=== PATIENT | male | born 1990 | race Caucasian/White ===

== ENCOUNTER 2017-11-21 23:22 | Emergency (ER) | payer SELFPAY ==
--- NOTE | 2017-11-22 00:03 | ED ---
Altered Mental Status - HPI Summary HPI Summary: Patient found in Commons unresponsive and, covered in vomit. Patient somnolent , but when aroused responds appropriately and is oriented. When roused admits to 6 glasses of wine consumption at wedding, and then more at at bar afterwards. Unsure how much more at bar. Denies any pain or injury. Denies medical history. - History Of Current Complaint Chief Complaint: EDSubstanceAbuse Stated Complaint: 2208 Time Seen by Provider: 11/21/17 23:45 Hx Obtained From: Patient Onset/Duration: Unknown PMH/Surg Hx/FS Hx/Imm Hx Endocrine/Hematology History: Denies: Hx Anticoagulant Therapy Cardiovascular History: Denies: Hx Congenital Heart Disease Respiratory History: Denies: Hx Pulmonary Edema History: Denies: Hx Dialysis Neurological History: Denies: Hx CVA Infectious Disease History: No Infectious Disease History: Denies: Traveled Outside the [place] in Last 30 Days - Social History Alcohol Use: Occasionally Substance Use Type: Reports: None Hx Tobacco Use: No Smoking Status (MU): Current Some Day Smoker Review of Systems Constitutional: Negative Eyes: Negative ENT: Negative Cardiovascular: Negative Respiratory: Negative Gastrointestinal: Negative Genitourinary: Negative Musculoskeletal: Negative Skin: Negative Neurological: Negative Psychological: Normal All Other Systems Reviewed And Are Negative: Yes Physical Exam - Summary Physical Exam Summary: Patient not vomiting here in the ED. Alert and oriented when aroused. Speech is coherent and appropriate. No indication of trauma or injury. Patient moves up bilateral upper and lower extremities freely. Triage Information Reviewed: Yes Vital Signs On Initial Exam: Initial Vitals Temp Pulse Resp BP Pulse Ox 98.1 F 101 20 142/78 98 11/21/17 23:28 11/21/17 23:28 11/21/17 23:28 11/21/17 23:28 11/21/17 23:28 Vital Signs Reviewed: Yes Appearance: Positive: Well-Appearing Skin: Positive: Warm Head/Face: Positive: Normal Head/Face Inspection Eyes: Positive: Normal Neck: Positive: Supple Respiratory/Lung Sounds: Positive: Clear to Auscultation Cardiovascular: Positive: Normal Abdomen Description: Positive: Nontender Musculoskeletal: Positive: Normal Neurological: Positive: Normal Psychiatric: Positive: Normal AVPU Assessment: Alert - Poorn[place] Coma Scale Best Eye Response: 4 - Spontaneous Best Motor Response: 6 - Obeys Commands Best Verbal Response: 5 - Oriented Coma Scale Total: 15 Diagnostics - Vital Signs Vital Signs Temp Pulse Resp BP Pulse Ox 11/21/17 23:28 98.1 F 101 20 142/78 98 - Laboratory Lab Statement: Any lab studies that have been ordered have been reviewed, and results considered in the medical decision making process. Altered Mental Statu Course/Dx - Course Course Of Treatment: Patient found in [facility] unresponsive and, covered in vomit. Patient somnolent, but when aroused responds appropriately and is oriented. When roused admits to 6 glasses of wine consumption at wedding, and then more at at bar afterwards. Unsure how much more at bar. Denies any pain or injury. Denies medical history. Patient alert, oriented. Vital signs within normal limits. Girlfriend who is sober confirmed patient had been drinking at a wedding and then went to a bar with some friends after the wedding. Patient able to raise respond appropriately, oriented. Denies any symptoms or injury. Vital signs within normal limits. Will be released into care of girlfriend. Girlfriend clinically sober. Patient remains oriented and responds appropriately. - Diagnoses Provider Diagnoses: Alcoholic intoxication Discharge - Sign-Out/Discharge Documenting (check all that apply): Patient Departure - Discharge Plan Condition: Stable Disposition: HOME Patient Education Materials: Alcohol Intoxication (ED) Referrals: No Primary Care Phys,NOPCP [Primary Care Provider] - Additional Instructions: Follow-up with primary care. Return to the ED for any new or worsening symptoms - Billing Disposition and Condition Condition: STABLE Disposition: Home
[2017-11-22 01:11] VITALS: BP 117/62
== END 2017-11-22 01:07 | disposition home or self-care (01) ==
LOC: ED 23:22
DX: F10.129 Alcohol abuse with intoxication, unspecified (principal); F17.200 Nicotine dependence, unspecified, uncomplicated
CPT/HCPCS: 99282